=== PATIENT | male | born 1980 | race Two or more races ===

== ENCOUNTER 2023-04-19 16:35 | Inpatient (IN) | payer BC ==
[~2023-04-19] VITALS: Ht 195.6 cm; Wt 154.2 kg
[2023-04-19] MEDS ORDERED: COZAAR25 MG PO (16:49)
[2023-04-19] MEDS ORDERED: LIPITOR80 MG PO (16:49)
[2023-04-19] MEDS ORDERED: RESTORIL15 MG PO (16:49)
[2023-04-19] MEDS ORDERED: ECOTRIN325 M1 (16:49)
[2023-04-19] MEDS ORDERED: HYDROCHLOROTH12.5 MG PO (16:50)
[2023-04-19] MEDS ORDERED: AZOR 5-40 MG T1 EACH (16:50)
[2023-04-19] MEDS ORDERED: BUPROPION XL450 MG (16:50)
[2023-04-19] MEDS ORDERED: OMEPRAZOLE MAGN20 MG (16:50)
[2023-04-19 17:36] LABS: HEMOGLOBIN 16.8 g/dL (13-16.00); MEAN CELL VOLUME 88.5 fL (80.0-100.00); MEAN CORPUSCULAR HGB CONC 35.1 g/dl (32.0-36.0); PLATELET COUNT 255 K/uL (150-450); RED BLOOD COUNT 5.43 M/uL (4.00-6.00); RED CELL DISTRIBUTION WIDTH 13.5 % (11.5-14.5)
[2023-04-19 17:56] LABS: INR 1.12; PARTIAL THROMBOPLASTIN TIME 26.9 SECONDS (22.0-34.0); PROTHROMBIN TIME 11.7 SECONDS (9.0-11.5)
[2023-04-19 18:24] LABS: CALCIUM 10.2 mg/dL (8.5-10.1); CREATININE SERUM 0.87 mg/dL (0.70-1.30); GFR 97.19; POTASSIUM 3.57 mEq/L (3.5-5.1)
[2023-04-19 18:32] LABS: DIGOXIN 0.1 ng/ml (0.8-2.0)
[2023-04-19 21:49] LABS: ABG PH 7.436 (7.35-7.45); ABG PO2 130.6 mmHg (80-100); ABG pCO2 35.2 mmHg (35-45); BASE EXCESS -0.5 mmol/l; BICARBONATE 23.1 mmol/l (23-25); Tco2 24.2 mmol/l
[2023-04-19 21:55] LABS: allen test SATISFACTORY; o2 32 %; puncture site RADIAL RIGHT
== END 2023-04-20 15:43 | disposition left against medical advice (07) | DRG 310 ==
LOC: ER 16:35 → ICU-2 21:34 → ICU 21:34
PROVIDERS: Emergency Medicine; General Practice; ADMIT Internal Medicine; ATTEND Internal Medicine
PROC: 4A033R1 Measurement of Arterial Saturation, Peripheral, Percutaneous Approach (ICD-10-PCS; principal; 2023-04-19)
PROC: B246ZZZ Ultrasonography of Right and Left Heart (ICD-10-PCS; 2023-04-19)
DX: I48.20 Chronic atrial fibrillation, unspecified (principal); Z20.822 Contact with and (suspected) exposure to COVID-19